=== PATIENT | male | born 1940 | race Caucasian/White ===

== ENCOUNTER 2018-11-22 22:59 | Inpatient (IN) | payer MEDICARE ==
[2018-11-22] MEDS ORDERED: Pantoprazole 40 MG VIAL IVP SCH (23:45)
[2018-11-22] MEDS ORDERED: Ondansetron PF 4 MG/2 ML Vial ONE (23:56)
[2018-11-22] MEDS ORDERED: Meclizine HCl 25 MG TAB ONE (23:56)
[2018-11-22] MEDS ORDERED: traMADol HCl 50 MG TAB PO PRN ×2 (23:59)
[2018-11-22] MEDS ORDERED: Acetaminophen 1,000 MG in Premix Bag 1 BAG IVPB SCH (23:59)
[2018-11-23 01:36] LABS: Bacteria/HPF None Seen HPF (None Seen); Bilirubin Negative (Negative); Blood, Urine 3+ (Negative); Clarity Turbid (Clear); Glucose, Urine (Dipstick) 30 mg/dL (Negative); Leukocyte Negative Leu/uL (Negative); Nitrite Negative (Negative); Protein, Urine (Dipstick) 20 mg/dL (Neg-Trace); RBC/HPF Greater than 50 HPF (0-3); Squamous Epithelial 0-3 HPF (0-3); Urobilinogen Normal mg/dL (Less than 2); WBC/HPF 0-3 HPF (0-3)
[2018-11-23] MEDS ORDERED: HumaLOG 300 UNITS/3 ML VIAL SC PRN (01:51)
[2018-11-23] MEDS ORDERED: Dextrose 5% in Water 1,000 ML IV PRN (01:51)
[2018-11-23] MEDS ORDERED: hydrALAZINE 20 MG/ML VIAL SLOW IVP PRN (01:51)
[2018-11-23] MEDS ORDERED: Ondansetron PF 4 MG/2 ML Vial IVP PRN (01:51)
[2018-11-23] MEDS ORDERED: Dextrose 50% Abboject 50 ML SYRINGE SLOW IVP PRN (01:51)
[2018-11-23] MEDS: Acetaminophen 1,000 MG in Premix Bag 1 BAG IVPB SCH ×2 (02:08→11:04)
[2018-11-23] MEDS ORDERED: Pantoprazole 40 MG VIAL IVP SCH (02:15)
[2018-11-23 02:20] VITALS: BMI 28.3
[2018-11-23] MEDS ORDERED: Sodium Chloride 0.9% 1,000 ML IV SCH (03:30)
--- NOTE | 2018-11-23 04:25 | HP ---
HISTORY OF PRESENT ILLNESS: Mr. Cox is a 77-year-old gentleman who presented to the ER via transfer from [facility] with a diagnosis of left open fibular fracture after being charged by a bull. The patient reports that he was trying to load the bull onto the trailer. The bull did not cooperate and charged him. He fell against the fence which caused him an open fracture of the left leg. After the incident, he was able to walk and ride home. He reports pain in the left leg. No pain of his head, chest, or abdomen. He went to the [place] [facility]. He was found to have open left fibular fracture and he was transferred to our facility. REVIEW OF SYSTEMS: Noncontributory except per HPI. PAST MEDICAL HISTORY: Includes hypertension. PAST SURGICAL HISTORY: Right knee replacement and he had also earlier 2 times charged by a bull and caused him broken rib 2 times. SOCIAL HISTORY: The patient lives at home. Denies smoking history. He denied drug use. He admitted to using alcohol 2 to 3 beers every night. He is active, working in a farm. ALLERGIES: NO KNOWN DRUG ALLERGIES. CURRENT MEDICATION: 1. Lisinopril 10 mg daily. 2. Amlodipine 10 mg daily. 3. Aspirin 81 mg daily. PHYSICAL EXAMINATION: GENERAL: The patient lying down in bed, in no acute distress. SKIN: Moist and warm. VITAL SIGNS: Blood pressure 132/77, pulse 73, respiratory rate 16, temperature 97.6, on room air. HEENT: Atraumatic. No bruising. No deformity. NECK: Trachea midline. No deformity. No bruising. CHEST: No bruising. No deformity. No tenderness to touch. Chest expansion equal bilaterally. LUNGS: Breath sounds clear bilaterally. HEART: Regular rate and rhythm. ABDOMEN: Soft, nondistended. No bruising. No deformity. PELVIS: Stable, nontender to touch. EXTREMITIES: Right lower extremity normal range of motion, neurovascularly intact. Upper extremity bilaterally neurovascularly intact. Left lower extremity is on splint. No pain with passive movement of the toe. The left toe capillary refill less than 2 seconds. The left toe pink, warm. ASSESSMENT: 1. Status post being charged by a bull. 2. Left open fibular fracture. 3. History of hypertension. 4. History of regular alcohol use. PLAN: The patient will be admitted to the surgical floor. Initiate pain control profile. Initiate nonpharmacology DVT prophylaxis, initiate gastritis prophylaxis. Dr. Pollard contacted Orthopedics. Orthopedics will take the patient to the OR tomorrow. The patient will be n.p.o. jonn, ready for surgery tomorrow. Job ID: [id number] MTDD
[2018-11-23] MEDS ORDERED: Fentanyl 100 MCG/2 ML VIAL ONE (07:23)
[2018-11-23] MEDS ORDERED: HYDROcodone/Acetaminophen 5/325 mg Tablet PO PRN ×2 (08:05)
[2018-11-23] MEDS ORDERED: Morphine Sulfate 2 MG/ML SYRINGE SLOW IVP PRN (09:04)
[2018-11-23] MEDS ORDERED: Promethazine HCl 25 MG/ML VIAL SLOW IVP PRN (09:04)
[2018-11-23] MEDS ORDERED: PACU-Morphine 4MG/ML VIAL SLOW IVP PRN (09:04)
[2018-11-23] MEDS ORDERED: Promethazine HCl 25 MG/ML VIAL IM PRN (09:04)
[2018-11-23] MEDS ORDERED: Ondansetron HCl/PF 4 MG/2 ML Vial IVP PRN (09:04)
[2018-11-23] MEDS ORDERED: Meperidine HCl/PF 25 MG/ML VIAL SLOW IVP PRN (09:04)
[2018-11-23] MEDS ORDERED: HYDROmorphone 2 MG/ML VIAL SLOW IVP PRN (09:04)
[2018-11-23] MEDS ORDERED: ePHEDrine 50 MG/ML VIAL ONE (10:21)
[2018-11-23] MEDS ORDERED: Lidocaine 1% PF 5 ML VIAL ONE (10:21)
[2018-11-23] MEDS ORDERED: Ondansetron PF 4 MG/2 ML Vial ONE (10:21)
[2018-11-23] MEDS ORDERED: Dexamethasone 20 MG/5 ML VIAL ONE (10:21)
[2018-11-23] MEDS ORDERED: PROPOFOL 200 MG/20 ML VIAL ONE (10:21)
[2018-11-23] MEDS: Senokot S 8.6-50 MG TAB PO SCH ×2 (11:04→21:35)
[2018-11-23] MEDS: Multivit, Therapeutic 1 TAB PO SCH (11:04)
[2018-11-23] MEDS: Polyethylene Glycol 3350 17 GM Packet PO SCH (11:05)
[2018-11-23] MEDS: Lisinopril 20 MG TAB PO SCH ×2 (14:04→14:05)
[2018-11-23] MEDS: CEFAZOLIN 2 GM in Premix Bag 1 BAG IVPB SCH ×2 (14:06→21:35)
[2018-11-23] MEDS ORDERED: Cyclobenzaprine 10 MG TAB PO PRN (15:10)
--- NOTE | 2018-11-23 15:55 | PRG ---
DATE OF SERVICE: 11/23/2018 SUBJECTIVE: The patient is currently on the surgical floor. 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 He was transferred to our facility from [place] and this morning, he was taken to the operating room with Dr. Harper to undergo irrigation and debridement of the same. The patient tolerated the procedure well and this morning at rounds the patient was immediate postop, he is stating that his pain was controlled and he was awaiting to have his breakfast. OBJECTIVE: VITAL SIGNS: Temperature 97.4, heart rate 60, blood pressure 144/77, respirations 16, and oxygen saturation is 94% on 2 L via nasal cannula. GENERAL: The patient is resting comfortably in bed. He is awake, alert, appropriate, and interactive. [place] Coma Scale is 15. HEENT: Unremarkable. LUNGS: Clear to auscultation with good inspiratory and expiratory effort, though the patient does have some tenderness to palpation to his left lateral rib cage/chest wall. ABDOMEN: Soft, flat, nontender with active bowel sounds. EXTREMITIES: Neurovascularly intact x4. Left lower extremity has a clean, dry, and intact postop dressing on it. LABORATORY DATA: There are no labs to review this morning. IMAGING STUDIES: There are no radiographs reviewed this morning. ASSESSMENT: 1. Status post being charged by bull. 2. Status post irrigation and debridement of left open fibular fracture. 3. History of hypertension. 4. History of regular alcohol use. PLAN: Plan will be to continue supportive care, begin physical and occupational therapy pain is controlled. He will likely be discharged to home tomorrow. Job ID: [id number]
--- NOTE | 2018-11-23 16:01 | RAD ---
EXAM: Two views chest PROVIDED CLINICAL HISTORY: Rib fracture COMPARISON: 11/22/2018 FINDINGS: Cardiac and mediastinal silhouette appears within normal limits. Lungs appear free of significant [place]a city. No pleural fluid or pneumothorax apparent. Multiple remote appearing left-sided rib fractures are redemonstrated. Focal angulation involving a lower lateral left rib is of uncertain age but may r eflect an acute fracture. IMPRESSION: No evidence for an acute cardiopulmonary process. Possible fracture involving left lateral lower rib.
[2018-11-23] MEDS: Ibuprofen 800 MG TAB PO SCH (21:35)
[2018-11-23] MEDS ORDERED: Acetaminophen 500 MG TAB PO PRN (23:59)
--- NOTE | 2018-11-23 23:59 | PRG ---
DATE OF SERVICE: SUBJECTIVE: This is a 77-year-old male, who came in to the emergency room after being charged by a bull. He sustained left open fibular fracture. He had been taken to the OR with Dr. Harper to undergo irrigation and debridement of the left open fibular fracture. The patient reports doing good. Pain is well controlled. Vital signs are stable. OBJECTIVE: GENERAL: The patient is lying down in bed comfortable with no acute distress. VITAL SIGNS: Stable. LUNGS: Clear bilaterally. HEART: Regular rate and rhythm. ABDOMEN: Soft and nondistended. EXTREMITIES: Neurovascularly intact x4. Left lower extremity dressing clean, dry, and intact. PLAN: Plan will be to continue supportive care and continue PT/OT. The patient will likely be discharged home tomorrow. Job ID: [id number]
[2018-11-24] MEDS: Ibuprofen 800 MG TAB PO SCH (06:15)
[2018-11-24] MEDS: CEFAZOLIN 2 GM in Premix Bag 1 BAG IVPB SCH (06:15)
[2018-11-24] MEDS: Senokot S 8.6-50 MG TAB PO SCH (08:25)
[2018-11-24] MEDS: Polyethylene Glycol 3350 17 GM Packet PO SCH (08:25)
[2018-11-24] MEDS: Lisinopril 20 MG TAB PO SCH (08:25)
[2018-11-24] MEDS: Multivit, Therapeutic 1 TAB PO SCH (08:25)
[2018-11-24 08:37] VITALS: BP 156/75; TEMP 97.8
[2018-11-24] MEDS ORDERED: Gabapentin 300 MG CAP PO SCH (09:00)
--- NOTE | 2018-11-25 10:44 | OP ---
DATE OF PROCEDURE: 11/23/2018 PREOPERATIVE DIAGNOSIS: Open fibular fracture, left. POSTOPERATIVE DIAGNOSIS: Open fibular fracture, left. PROCEDURE PERFORMED: I and D of open fibular fracture. No internal fixation required. ANESTHESIA: General. ESTIMATED BLOOD LOSS: Less than 100. SPECIMENS: None. DRAINS: None. COMPLICATIONS: None. DESCRIPTION OF PROCEDURE: The patient was taken to the operating room, where general anesthesia was induced. Left leg was prepped and draped in a sterile fashion. I extended the incision proximally and distally, exposed the bone, irrigated copiously, pulsatile lavage irrigation. There was no gross contamination, so I closed the wound primarily. Sterile dressings applied. Job ID: [id number]
--- NOTE | 2018-11-25 16:48 | EKG ---
Test Reason : Blood Pressure : / mmHG Vent. Rate : 079 BPM Atrial Rate : 079 BPM P-R Int : 204 ms QRS Dur : 098 ms QT Int : 360 ms P-R-T Axes : 019 -18 -04 degrees QTc Int : 412 ms Normal sinus rhythm Inferior infarct (cited on or before 22-JAN-2013) Cannot rule out Anterior infarct , age undetermined Abnormal ECG Confirmed by BINTA AUSTIN ([id number]) on 11/25/2018 4:48:12 PM Referred By: EVERARDO Confirmed By:BINTA AUSTIN
== END 2018-11-24 12:20 | disposition home or self-care (01) | DRG 502 ==
LOC: ERS 22:59 → SURG B 11-23 01:31
PROVIDERS: ADMIT Orthopaedic Surgery; ATTEND Orthopaedic Surgery
PROC: 0QDK0ZZ Extraction of Left Fibula, Open Approach (ICD-10-PCS; principal; 2018-11-23)
DX: S82.402B Unspecified fracture of shaft of left fibula, initial encounter for open fracture type I or II (principal); I10 Essential (primary) hypertension; Z96.651 Presence of right artificial knee joint; F10.10 Alcohol abuse, uncomplicated; Z98.890 Other specified postprocedural states; Z79.82 Long term (current) use of aspirin; W55.22XA Struck by cow, initial encounter
CPT/HCPCS: 36415; 71046; 81003; 81015; 86850; 86900; 86901; 93005; 93010; C9113; J0131; J0690; J1100; J2001; J2405; J2704; J3010; J3490; J8597

== ENCOUNTER 2018-12-04 16:55 | Outpatient (CLI) | payer MEDICARE ==
--- NOTE | 2018-12-04 17:29 | ULT ---
EXAM: Left lower extremity venous ultrasound HISTORY: Left lower extremity pain and edema status post surgery COMPARISON: None TECHNIQUE: Multiplanar grayscale and color Doppler images were obtained in a left lower extremity mckinley ous ultrasound. Spectral analysis of the Doppler waveforms were performed. FINDINGS: The common femoral vein, profunda femoral vein, superficial femoral vein, and popliteal vei n are normal in appearance without visible thrombus. These vessels demonstrate normal compression and flow. Augmentation was unable to be performed secondary to bandaging. The posterior tibial vein cannot be seen secondary to bandaging. The greater saphenous vein is patent without evidence of thrombus. IMPRESSION: No evidence of DVT.
== END 2018-12-04 16:56 | disposition home or self-care (01) ==
LOC: ULT 16:55
PROVIDERS: ATTEND Orthopaedic Surgery
DX: M79.89 Other specified soft tissue disorders (principal); M79.662 Pain in left lower leg

== ENCOUNTER 2019-09-26 17:44 | Inpatient (IN) | payer MEDICARE ==
[2019-09-26] MEDS ORDERED: Acetaminophen 325 MG TAB PO PRN (19:27)
[2019-09-26] MEDS ORDERED: Acetaminophen 650 MG Suppository PR PRN (19:27)
--- NOTE | 2019-09-26 20:31 | HP ---
TIME OF ASSESSMENT: 1900 hours. CHIEF COMPLAINT: Lightheadedness. HISTORY OF PRESENT ILLNESS: Mr. Cox is a 78-year-old gentleman, who presented to the Emergency Department at [place] with complaints of lightheadedness since he woke up this morning. He denies any spinning sensation and states he felt foggy in his head. He called Dr. Armendariz, who referred him to the ER. The patient had improvement in the symptoms on arrival to [place] ED, but they had not yet fully resolved. He reports feeling nauseated in the morning as well and attempted to make himself vomit in order to seek relief, but was unable to. He reports dry heaving once. Denies any abdominal pain. No vision changes or speech changes. No facial numbness or weakness. Denies any upper or lower extremity numbness or weakness. No gait disturbances. The patient states he experienced no other symptoms except for the lightheadedness. At [place] [facility], he underwent an EKG, which showed a normal sinus rhythm. He had a CT of the head done showing no acute changes. There was atrophy and chronic ischemic changes with no definite acute findings. A CT angiogram of the head and neck was done as well showing dense atherosclerotic vascular calcification at the origin of the right internal carotid artery, per report, there is presumably moderate to severe degree of narrowing of the origin of the right ICA. Left ICA, patent. Left vertebral artery, said to be very small in caliber with a short-segment occlusion at the level of the upper cervical spine. Right vertebral artery, patent. No significant focal narrowing or branch occlusions involving the [place] or posterior circulation. The patient received Zofran, meclizine, and diphenhydramine. He states his nausea has resolved. He also received 1 L of normal saline. Transferred here for further investigations and management. On arrival here, the patient was asymptomatic. Vital signs unremarkable. He remains asymptomatic at present. PAST MEDICAL HISTORY: 1. History of vertigo. 2. History of hypertension. 3. Daily alcohol consumption. PAST SURGICAL HISTORY: 1. Tonsillectomy. 2. Right knee replacement. SOCIAL HISTORY: The patient reports drinking two small shots of bourbon with water right before bed every night. Denies any tobacco use or illicit drug use. He lives at home, alone. He is fully independent. He does not require any assistive devices for mobility. ALLERGIES: NO KNOWN DRUG ALLERGIES. CURRENT MEDICATIONS: 1. Lisinopril. 2. Amlodipine. 3. Aspirin. PHYSICAL EXAMINATION: GENERAL: The patient appears well developed, well nourished, is in no acute distress. He is resting comfortably on the stretcher. VITAL SIGNS: Temperature 97.9, pulse 69, blood pressure 135/83, respirations 16 , O2 saturation 100% on room air. HEENT: Normocephalic and atraumatic. Pupils are equal, round, and reactive to light. Sclerae icterus. Oropharynx is clear. NECK: Supple. No lymphadenopathy. LUNGS: Clear to auscultation bilaterally without any wheezes, rales, or rhonchi. CARDIAC: Regular rate and rhythm. ABDOMEN: Soft, nontender, nondistended with bowel sounds present. No guarding or rigidity. No renal angle tenderness. EXTREMITIES: No lower leg swelling or edema. NEUROLOGIC: Alert and oriented x3. Power 5/5 in all limbs. Sensation intact. Facial movements normal. No tongue deviation. No facial weakness. Facial sensation intact. Coordination normal. SKIN: Warm and dry. INVESTIGATIONS: Laboratory studies; white blood count 6.5, hemoglobin 15.3, hematocrit 48, platelets 216, PT 12.8, INR 1.0, PTT 27.6, BUN 25, creatinine 1.16, GFR 61, glucose 149. LFTs unremarkable. Alkaline phosphatase 37. Urinalysis unremarkable. IMAGING DATA: As mentioned above in HPI. IMPRESSION AND PLAN: Mr. Cox is a pleasant 78-year-old gentleman, who presented with lightheadedness and nausea that he developed upon awakening this morning. He underwent investigations at [facility] and found to have a short segment occlusion involving the left vertebral artery and area of stenosis involving the right ICA. He is being admitted for management of the following; 1. Cerebrovascular accident workup. The patient is asymptomatic at present. Deemed to be a poor candidate for tPA given the length of time with the symptoms and his symptoms have resolved. He was given aspirin prior to arrival. We will continue aspirin at 325 mg p.o. daily. He was taking 81 mg p.o. daily at home. We will start him on a statin. Consultation placed to Neurology, PT/OT, and Stroke team. We will obtain an echo. We will need bedside screening for dysphagia prior to clearing him for diet. We will check lipid panel with morning labs. 2. Hypertension. Monitor blood pressure and reconcile home medications once verified. 3. Nausea. Per patient, this is fully resolved. Antiemetics as needed. 4. Gastrointestinal prophylaxis with famotidine. 5. Deep venous thrombosis prophylaxis with mechanical SCDs. 6. Code status is full. Surrogate decision maker is his son, Garrison Cox. Case discussed with Dr. John, who agrees with plan of care as described above. Job ID: [id number] [facility] MED[facility] CENTERJesús
[2019-09-26] MEDS ORDERED: Atorvastatin Calcium 40 MG TAB PO SCH (21:00)
[2019-09-26 21:05] VITALS: BMI 28.2
[2019-09-26] MEDS: Famotidine/PF 20 mg/2ml Vial SLOW IVP SCH (21:44)
[2019-09-27 05:24] LABS: #Eosinphils 0.2 thou/uL (0.0-0.7); #Lymphocytes 2.3 thou/uL (1.20-3.40); #Monocytes 0.6 thou/uL (0.11-0.59); #Neutrophils 2.7 thou/uL (1.40-6.50); %Basophils 0.4 % (0.0-1.0); %Eosinophils 3.3 % (0.0-10.0); %Lymphocytes 39.5 % (21.0-51.0); %Monocytes 10.2 % (0.0-10.0); %Neutrophils 46.5 % (42.0-75.0); Hemoglobin 13.9 g/dL (14.0-18.0); Mean Corpuscular Hemoglobin 31.2 pg (27.0-31.0); Mean Corpuscular Volume 94.6 fL (78.0-98.0); Mean Platelet Volume 6.8 fL (7.4-10.4); Platelet Count 234 thou/uL (130-400); RBC Distribution Width 11.7 % (11.5-14.5); Red Blood Cell (RBC) Count 4.46 mill/uL (4.70-6.10); White Blood Cell (WBC) Count 5.7 thou/uL (4.8-10.8)
[2019-09-27 05:45] LABS: Anion Gap 9 mmol/L (10-20); BUN (Urea Nitrogen) 19 mg/dL (8.4-25.7); Calc. Creatinine Clearance 80 mL/min (70-130); Calcium 9.2 mg/dL (7.8-10.44); Carbon Dioxide 30 mmol/L (23-31); Cardiac Risk 2.4 (Less than 4.5); Chloride 103 mmol/L (98-107); Cholesterol 122 mg/dl (< 200 Desired); Estimated GFR-MDRD 70; Glucose 103 mg/dL (83-110); HDL Cholesterol 51 mg/dL (>60 Neg Risk); LDL Cholesterol, Calculated 50 mg/dL; Potassium 3.9 mmol/L (3.5-5.1); Sodium 138 mmol/L (136-145); Triglycerides 107 mg/dL (Less than 150)
[2019-09-27] MEDS ORDERED: Aspirin 325 mg Enteric Coated Tablet PO SCH (09:00)
[2019-09-27] MEDS: Famotidine/PF 20 mg/2ml Vial SLOW IVP SCH ×2 (09:29→20:37)
--- NOTE | 2019-09-27 10:05 | CON ---
DATE OF CONSULTATION: 09/27/2019 CONSULTING PHYSICIAN: Hospitalist Service. IMPRESSION: 1. Acute dizziness, likely secondary to vertebral artery stenosis. 2. Right carotid artery stenosis of indeterminate severity. PLAN: 1. Continue aspirin and statin. 2. Carotid ultrasound. HISTORY OF PRESENT ILLNESS: Mr. Cox is a 78-year-old gentleman with a past history of hypertension. He reports developing acute dizziness yesterday. He was bit vague in its description, but denies it really made him nauseous or unstable. There is no associated weakness or numbness of any of the extremities. He denies any double vision, blurred vision, difficulty speaking, or alteration of consciousness. He came into the emergency room yesterday. A CT scan of the brain showed some chronic small-vessel ischemic changes. His CT angiogram showed short-segment stenosis in the left vertebral artery and an indeterminate severity stenosis of the right internal carotid artery. His laboratory studies were unremarkable. PAST MEDICAL HISTORY: Hypertension. ALLERGIES: NONE. SOCIAL HISTORY: Positive for some alcohol use. FAMILY HISTORY: Noncontributory. REVIEW OF SYSTEMS: Ten-system review of systems is otherwise negative. PHYSICAL EXAMINATION: VITAL SIGNS: Blood pressure 142/72, pulse 53, respirations 18, and temperature 97.8. HEENT: Pupils are equal and reactive. Conjunctivae clear. No nystagmus present. Oropharynx clear. NECK: Supple. CHEST: Clear. ABDOMEN: Soft and nontender. EXTREMITIES: No cyanosis or edema. SKIN: No rash. NEUROLOGIC: He is alert and appropriate. His speech is fluent and clear. He has no focal deficits. No abnormal movements were seen. SUMMARY: An elderly gentleman with acute onset of dizziness. He has some vertebral artery stenosis. He was previously taking a baby aspirin, apparently was not taking a statin. I agree with your current management. I would further evaluate his carotid arteries with an ultrasound. Job ID: [id number]
--- NOTE | 2019-09-27 14:05 | PDOC.HOSPP ---
- Subjective Encounter Date: 09/27/19 Encounter Time: 08:00 Subjective: no overnight events. this morning, feels well, has no complaints, requests to go home. Explained that there are additional studies pending and continued monitoring required. - Objective Vital Signs & Weight: Vital Signs (12 hours) Temp Pulse Resp BP BP BP Pulse Ox 09/27/19 11:00 97.8 F 52 L 18 165/86 H 93 L 09/27/19 09:25 161/80 H 151/76 H 142/72 H 09/27/19 07:22 97.8 F 53 L 18 142/84 H 160/80 H 139/67 99 09/27/19 05:05 97.4 F L 50 L 18 127/72 97 Weight Weight 214 lb 3.2 oz Result Diagrams: 09/27/19 04:56 09/27/19 04:56 Hospitalist ROS - Review of Systems Constitutional: denies: fever, chills, sweats, weakness, malaise, other Respiratory: denies: cough, dry, shortness of breath, hemoptysis, SOB with excertion, pleuritic pain, sputum, wheezing, other Cardiovascular: denies: chest pain, palpitations, orthopnea, paroxysmal noc. dyspnea, edema, light headedness, other Gastrointestinal: denies: nausea, vomiting, abdominal pain, diarrhea, constipation, melena, hematochezia, other Genitourinary: denies: dysuria, frequency, incontinence, hematuria, retention, other - Medication Medications: Active Medications Generic Name Dose Route Start Last Admin Trade Name Freq PRN Reason Stop Dose Admin Famotidine 20 mg 09/26/19 21:00 09/27/19 09:29 Pepcid SLOW IVP 20 mg Q12HR KULWANT Administration - Exam General Appearance: NAD, awake alert Neck: no JVD Heart: RRR, no murmur, no gallops, no rubs Respiratory: CTAB, no wheezes, no rales, no ronchi Gastrointestinal: soft, non-tender, non-distended, normal bowel sounds Extremities: no edema Psychiatric: normal affect, normal behavior, A&O x 3 Hosp A/P - Plan #vertebrobasilar TIA symptoms resolved started on aspirin and high intensity statin #asymptomatic right internal carotid stenosis carotid u/s to better characterize stenosis; may benefit from endarterectomy assuming 60-99% stenosed and appropriate surgical candidate full code if decided to leave AMA, medications have already been sent to pharmacy
--- NOTE | 2019-09-27 18:00 | ULT ---
CAROTID ARTERIAL DOPPLER ULTRASOUND: 09/27/19 COMPARISON: None. HISTORY: Stroke. TECHNIQUE: Multiplanar ram scale sonographic imaging of the arterial structures of the neck obtained with color flow and spectral analysis. FINDINGS: Antegrade blood flow and normal arterial waveforms are documented within the right vertebral and the right common carotid artery. There is calcified atherosclerotic plaque involving the proximal ICA bilaterally, right greater than left. The degree of atherosclerotic calcification at the origin of the right internal carotid artery limits detailed assessment. This is better assessed on the CT angiogram of the neck performed 09/26/19 . There is mild atherosclerotic calcifications of the distal left CCA and proximal left ICA. Antegrade blood flow and normal arterial waveforms are seen within the left carotid and vertebral system. VESSEL PSV (cm/s) Right CCA 107 Right ICA 69 Right ECA 76 Left CCA 114 Left ICA 74 Left ECA 52 ICA/CCA ratio is 0.7 bilaterally. IMPRESSION: Atherosclerotic disease with no elevated velocities. Carotid vascular structures are bett er assessed on the 09/26/19 CT angiogram of the neck. POS: [facility]
[2019-09-27] MEDS ORDERED: Prevnar 13-Val Conj/PF 0.5 ML SYRINGE IM ONE (21:00)
[2019-09-27] MEDS ORDERED: Atorvastatin Calcium 40 MG TAB PO SCH (21:00)
[2019-09-28 07:38] VITALS: BP 143/69; TEMP 97.9
[2019-09-28] MEDS ORDERED: Aspirin 81 mg Enteric Coated Tablet PO SCH (09:00)
[2019-09-28] MEDS ORDERED: Aspirin 325 mg Enteric Coated Tablet PO SCH (09:00)
--- NOTE | 2019-09-29 06:27 | DIS ---
DATE OF ADMISSION: 09/26/2019 DATE OF DISCHARGE: 09/28/2019 DISCHARGE DISPOSITION: Home. FOLLOWUP: 1. Follow up with primary care physician, Dr. Deandre Armendariz, in 1 week. 2. Follow up with Neurology, Dr. Del Valle, in 10 days. DISCHARGE MEDICATIONS: 1. Aspirin 325 mg daily. 2. Crestor 40 mg q.h.s. 3. The patient was advised to discontinue amlodipine. 4. All other home medications were left unchanged. The patient was advised to monitor blood pressure on a daily basis and to maintain a log. He was also advised to reduce lisinopril/hydrochlorothiazide dose by half if his blood pressures are in the lower range. Please note, the patient declined home health care. BRIEF HOSPITAL COURSE: The patient is a 78-year-old male with hypertension, presented to the hospital with dizziness with some nausea. He denies any other focal neurologic symptoms including vertigo. Please refer to the history and physical for further details. The patient was admitted to the hospital with a diagnosis of dizziness of unclear etiology. He was found to have right-sided vertebral artery occlusion, which could be contributing to his symptoms. He was also found to have some stenosis in the right internal carotid artery. The degree of narrowing was not accurately assessed on the CT angiogram. For this reason, he underwent a carotid Doppler that showed no hemodynamically significant stenosis based on the velocity criteria. He will benefit from a followup carotid ultrasound as outpatient. He has been ambulating in the hallway without any dizziness at this time. Physical Therapy has also cleared him. An echocardiogram was obtained that showed ejection fraction 55% to 60% with moderate to severe dilatation of the left atrium, mild tricuspid regurgitation, mild pulmonic regurgitation. Fall precaution was emphasized. He will benefit from a 24-hour supervision. FINAL DIAGNOSES: 1. Suspected vertebrobasilar transient ischemic attack. 2. Asymptomatic right internal carotid artery stenosis. 3. History of vertigo. The patient may benefit from an outpatient ENT evaluation. 4. Hypertension. 5. Daily alcohol use. The patient was counseled. 6. Chronic kidney disease, stage 2. The patient understands the above plan of care. Job ID: [id number]
== END 2019-09-28 12:01 | disposition home or self-care (01) | DRG 69 ==
LOC: ERS 17:44 → 2SE 18:51
PROVIDERS: ADMIT Internal Medicine; ATTEND Internal Medicine
DX: G45.0 Vertebro-basilar artery syndrome (principal); R11.0 Nausea; I10 Essential (primary) hypertension; Z96.651 Presence of right artificial knee joint; I65.21 Occlusion and stenosis of right carotid artery; Z79.899 Other long term (current) drug therapy; Z79.82 Long term (current) use of aspirin
CPT/HCPCS: 36415; 80048; 80061; 83735; 85025; 93306; 93880; S0028

== ENCOUNTER 2020-09-09 22:31 | Inpatient (IN) | payer MEDICARE ==
[2020-09-10 01:41] VITALS: BMI 28.6
[2020-09-10] MEDS ORDERED: Ondansetron ODT 4 MG TAB SL PRN (02:15)
[2020-09-10] MEDS ORDERED: Acetaminophen 325 MG TAB PO PRN (02:15)
[2020-09-10] MEDS ORDERED: Sodium Chloride 0.9% 1,000 ML IV SCH (02:15)
[2020-09-10] MEDS ORDERED: Ondansetron PF 4 MG/2 ML Vial IVP PRN (02:15)
[2020-09-10] MEDS ORDERED: Labetalol HCl 100 MG/20 ML VIAL SLOW IVP PRN (03:03)
[2020-09-10] MEDS ORDERED: hydrALAZINE 20 MG/ML VIAL SLOW IVP PRN (03:03)
[2020-09-10 05:26] LABS: #Eosinphils 0.1 thou/uL (0.0-0.7); #Lymphocytes 1.5 thou/uL (1.20-3.40); #Monocytes 0.4 thou/uL (0.11-0.59); #Neutrophils 3.3 thou/uL (1.40-6.50); %Basophils 0.5 % (0.0-1.0); %Eosinophils 1.3 % (0.0-10.0); %Lymphocytes 28.3 % (21.0-51.0); %Monocytes 7.7 % (0.0-10.0); %Neutrophils 62.1 % (42.0-75.0); Mean Corpuscular HGB CONC 33.3 g/dL (32.0-36.0); Mean Corpuscular Volume 96.1 fL (78.0-98.0); Mean Platelet Volume 6.6 fL (7.4-10.4); Platelet Count 218 thou/uL (130-400); RBC Distribution Width 11.6 % (11.5-14.5); Red Blood Cell (RBC) Count 4.36 mill/uL (4.70-6.10); White Blood Cell (WBC) Count 5.3 thou/uL (4.8-10.8)
[2020-09-10 05:47] LABS: Anion Gap 14 mmol/L (10-20); BUN (Urea Nitrogen) 19 mg/dL (8.4-25.7); Calc. Creatinine Clearance 86 mL/min (70-130); Calcium 9.2 mg/dL (7.8-10.44); Carbon Dioxide 22 mmol/L (23-31); Cardiac Risk 2.1 (Less than 4.5); Chloride 106 mmol/L (98-107); Cholesterol 124 mg/dl (< 200 Desired); Glucose 105 mg/dL (83-110); HDL Cholesterol 59 mg/dL (>60 Neg Risk); LDL Cholesterol, Calculated 52 mg/dL; Sodium 138 mmol/L (136-145); Triglycerides 64 mg/dL (Less than 150)
[2020-09-10] MEDS: Enoxaparin Sodium 40 MG/0.4 ML SYRINGE SC SCH (09:16)
[2020-09-10] MEDS ORDERED: Clopidogrel Bisulfate 75 MG TAB PO SCH (10:30)
[2020-09-10] MEDS ORDERED: Vit A,C & E/Lutein/Minerals Tablet PO SCH (10:30)
[2020-09-10] MEDS ORDERED: Aspirin 81 mg Enteric Coated Tablet PO SCH (10:30)
[2020-09-10] MEDS ORDERED: Multivit, Therapeutic 1 TAB PO SCH (10:45)
[2020-09-10] MEDS ORDERED: Meclizine HCl 12.5 MG TAB PO PRN (12:20)
[2020-09-10] MEDS ORDERED: Lisinopril 20 MG TAB PO SCH (12:30)
[2020-09-10] MEDS ORDERED: Ondansetron HCl/PF 4 MG in Sodium Chloride 0.9% 50 ML IVPB PRN (14:26)
[2020-09-10] MEDS ORDERED: Rosuvastatin 20 MG TAB PO SCH ×2 (21:00)
[2020-09-10] MEDS ORDERED: Atorvastatin Calcium 40 MG TAB PO SCH (21:00)
[2020-09-11] MEDS ORDERED: Non-Formulary Item 1 EACH (C,E,Zinc,Copper 24/Om3/Lut/Zea [Ocuvite Adult 50 Plus Softgel] PO SCH (09:00)
[2020-09-11] MEDS ORDERED: Aspirin 81 mg Enteric Coated Tablet PO SCH ×2 (09:00)
[2020-09-11] MEDS ORDERED: Lisinopril 20 MG TAB PO SCH (09:00)
[2020-09-11] MEDS ORDERED: Vit A,C & E/Lutein/Minerals Tablet PO SCH (09:00)
[2020-09-11] MEDS ORDERED: Multivit, Therapeutic 1 TAB PO SCH (09:00)
[2020-09-11] MEDS ORDERED: Non-Formulary Item 1 EACH (Multivitamin [Multiple Vitamins] 1 EACH Tablet) PO SCH (09:00)
[2020-09-11] MEDS ORDERED: Lisinopril 10 MG TAB PO SCH (09:00)
[2020-09-11] MEDS ORDERED: Clopidogrel Bisulfate 75 MG TAB PO SCH ×2 (09:00)
[2020-09-11] MEDS: Enoxaparin Sodium 40 MG/0.4 ML SYRINGE SC SCH (09:13)
[2020-09-11 11:33] VITALS: TEMP 98.1
[2020-09-11 11:52] VITALS: BP 145/83
== END 2020-09-11 14:28 | disposition short-term general hospital (02) | DRG 68 ==
LOC: ERS 22:31 → 2SE 09-10 00:18 → OBSVTOIN 09-11 12:48
PROVIDERS: ADMIT Student in an Organized Health Care Education/Training Program; ATTEND Student in an Organized Health Care Education/Training Program
DX: I65.21 Occlusion and stenosis of right carotid artery (principal); R00.1 Bradycardia, unspecified; R42 Dizziness and giddiness; I10 Essential (primary) hypertension; Z96.651 Presence of right artificial knee joint; H91.90 Unspecified hearing loss, unspecified ear; E78.00 Pure hypercholesterolemia, unspecified; M81.0 Age-related osteoporosis without current pathological fracture; K21.9 Gastro-esophageal reflux disease without esophagitis; Z86.73 Personal history of transient ischemic attack (TIA), and cerebral infarction without residual deficits; Z79.899 Other long term (current) drug therapy; Z79.82 Long term (current) use of aspirin; Z79.02 Long term (current) use of antithrombotics/antiplatelets; Z90.89 Acquired absence of other organs; Z87.891 Personal history of nicotine dependence
CPT/HCPCS: 36415; 70551; 80048; 80061; 85025; 93306; 95712; 95819; 95957; 96372; 99285; G0378; J1650

== ENCOUNTER 2021-09-26 07:53 | Outpatient (CLI) | payer MEDICARE | END 2021-09-26 07:54 | disposition home or self-care (01) | LOC: SCSMRI 07:53 | PROVIDERS: ATTEND Neurological Surgery | DX: M51.36 Other intervertebral disc degeneration, lumbar region (principal); M47.816 Spondylosis without myelopathy or radiculopathy, lumbar region; M47.817 Spondylosis without myelopathy or radiculopathy, lumbosacral region | CPT/HCPCS: 72148 ==